=== PATIENT | male | born 1990 | race Caucasian/White ===

== ENCOUNTER 2019-10-02 16:13 | Emergency (ER) | payer OTHER, SELFPAY ==
[2019-10-02 16:16] VITALS: BP 134/97; PULSE 86; RESP 18; TEMP 36.4; O2SAT 97
--- NOTE | 2019-10-02 16:24 | ED.GENADUL_ITS ---
Discharge Plan Disposition Patient Disposition: HOME Condition: Good Discharge Details Chief Complaint: Anxiety Clinical Impression: Anxiety, Panic attack Primary Care Provider: None,None ED Provider: Diana Zhang Home Meds and New Rx's Prescriptions: New lorazepam [Ativan] 0.5 mg tablet 0.5 mg PO TID PRN (Reason: anxiety) Qty: 10 RF: 0 Discharge Instructions Instructions: Lorazepam (By mouth), Anxiety (ED), Panic Attack (ED) Additional Instructions: Please encourage sleep hygiene as discussed. Take Ativan half in hour to 1 hour prior to bed. If you have another panic attack coming on, please take the Ativan as prescribed. Take this only as prescribed. Do not drive will take this medication. Keep this in a safe place. Do not drink alcohol will take this medicine. Mental health will be in touch with you tomorrow for continued discussions about her anxiety. Her home care consultant will also reach out to you to help set up follow-up appointment this week with primary care. Try daily exercise. Do not take on stressful projects at this time. If you develop thoughts of self-harm, suicidal ideations, worsening panic attacks or other new/worsening symptom please seek care urgently once again. Stand Alone Forms: Work Release Discharge Data Discharge Date/Time-TO BE ENTERED AT DEPARTURE: 10/02/19 19:06 Medical Decision Making Patient is a pleasant 29-year-old male presenting to complain of anxiety and panic attacks. His mother for evaluation after she noted him to have increased anxiety. Patient states that the past 2 weeks he has been having panic attacks almost daily during which time he begins quickly, experiences twitching, tingling in his hands and his feet. He denies any history of anxiety but states that over recent months he has had numerous life stressors that have been bringing this out. He reports that his cousin committed suicide a few months ago. COVID-19 has been very stressful on him. Significant other of 6 years broke up with him 2 weeks ago. Says that this is the greatest of all stressors at this time. He reports that secondary to this he is now having to move his he can no longer afford his apartment. He has had a significant change at work which was unwanted and sounds to be secondary to COVID-19. He has to move in the next few weeks because he can no longer afford his apartment without a second income of his significant other. Patient lives in [facility] but is visiting family here. He states that in [place] as well as here he has an excellent support system. Has been able to stay out of his apartment that he had shared with his significant other when he was in [place] as he staying with friends. States that this does help. He denies any thoughts of self-harm. No suicidal ideation. Denies subsequently others. Denies any hallucinations. No alcohol or illicit drug use. Patient is non-smoker. Patient states that he is had very interrupted sleep patterns. States minimal sleep over the last 2 weeks. Reports that when he is at rest his mind becomes very busy and that is when he has most difficulty. He reports that when he is working the symptoms seem to be much improved. He reports going programs at midnight to help with may be more busy. He has not attempted any self-harm historically. Patient does not have a local primary care. On exam, patient is resting comfortably. He appears in no acute distress. He is denying feeling anxious at the moment. Seems to have very good personal insight and is able to identify things that both help and perform his mental state. He is not seem to be a threat to others or himself at this time. However, given the note of anxiety he has been experiencing, I will consult with mental health. I did offer anxiolytic which she has declined at this time as he is feeling well at the moment. Mental health consulted with the patient. She will check in with the patient tomorrow. She will set patient up with local therapist. In the interim she will continue to check daily. PHQ 9 is a 18 but patient answered zero to any thought of self harm or suicidal ideation. Spoke with care management who will ensure the patient has primary care in [place] and follow-up will be arranged for this week. I spoke with the patient as well as his mother regarding treatment options for anxiety. Patient history, I think at the base of skull patient needs to get over immediately is sleep deprivation. His panic attacks are worse at night when trying to go to sleep. I believe the patient is at low risk for abuse of benzodiazepines. I think Ativan prior to bed would allow for sleep. We discusse dthis, encouraged sleep hygeine. He will have close f/u with mental health and PCP. He is able to contract to safety, is not a risk to himself or others at this time. However, I discussed worsening symptoms that should prompt reevaluation. Discussed plan with mother in depth.We discussed anxiety lessening techniques. He has excellent support system. He will not drive while taking ativan. All questions and concerns were addressed, he is in agreement with this plan. HPI General Mode of arrival: ambulatory . Date/Time Provider Initiated Documentation: 10/02/19 16:24 . Limitations to Documentation: no limitations . Information obtained by: patient and RN notes reviewed . HPI Narrative: Patient is a pleasant 29 year old male presenting for evaluation of anxiety and panic attacks. He states that he has not typically been anxious historically but states that he has had a rough year. Reports that his cousin committed suicide a few months ago. COVID has been stressful. His significant other of 6 years broke up with him 2 weeks ago. He has had a significant change in his job. Secondary to his change in financial status with break up, he is no longer able to afford his appointment. States that since his break up, he has had difficulty sleeping. States that he has an excellent support system and has been staying out of his apartment as this makes his anxiety worse. Has stayed with family or friends. Is currently visiting his parents. He lives in [place], [place]. He denies SI, HI, hallucinations. No ETOH or drug use. Related Data Home Medications Medication Instructions Recorded Confirmed lorazepam [Ativan] 0.5 mg PO TID PRN #10 tab 10/02/19 Previous Rx's Medication Instructions Recorded lorazepam [Ativan] 0.5 mg PO TID PRN #10 tab 10/02/19 Allergies Allergy/AdvReac Type Severity Reaction Status Date / Time amoxicillin [From Augmentin] Allergy Unverified 10/02/19 16:30 clavulanic acid Allergy Unverified 10/02/19 16:30 [From Augmentin] erythromycin base Allergy Unverified 10/02/19 16:30 [From Pediazole] hyaluronic acid Allergy Unverified 10/02/19 16:30 [From Supartz] naproxen [From Aleve] Allergy Hives Unverified 10/02/19 16:30 sulfisoxazole Allergy Unverified 10/02/19 16:30 [From Pediazole] General Stated Complaint: Anxiety ALISON: 3 Review of Systems Constitutional Constitutional: Reports as per HPI, Denies chills, Denies fatigue, Denies fever(s), Denies headache(s) and Denies weakness Eyes Eyes: Denies change in vision ENT Ears, Nose, Mouth, and Throat: Denies headache(s) Cardiovascular Cardiovascular: Reports as per HPI, Denies chest pain, Denies lightheadedness, Denies dyspnea and Denies dyspnea on exertion Respiratory Respiratory: Reports as per HPI, Denies cough, Denies dyspnea and Denies dyspnea on exertion Gastrointestinal Gastrointestinal: Reports as per HPI, Denies abdominal pain, Denies change in bowel habits, Denies nausea and Denies vomiting Genitourinary Genitourinary: Denies system reviewed and no additional complaints, except as documented (denies any change in urinary habits) Musculoskeletal Musculoskeletal: Denies abnormal gait Integumentary/Breasts Skin/Breast: Reports as per HPI and Denies rash Neurologic Neurologic: Denies abnormal movements, Denies abnormal speech, Denies abnormal gait, Denies behavioral changes, Denies headache(s), Denies memory loss, Denies paresthesias and Denies weakness Psychiatric Psychiatric: Reports abnormal sleep pattern, Reports anxiety, Denies behavioral changes, Reports change in appetite, Reports depression, Denies auditory hallucinations, Denies hopelessness, Denies anhedonia, Denies memory loss, Denies mood swings, Reports panic attacks, Denies visual hallucinations, Denies hallucinations, Denies homicidal ideation and Denies suicidal ideation Endocrine Endocrine: Denies fatigue PFSH Social History Smoking/Tobacco Use Status: Never Alcohol Intake: current Alcohol Intake frequency: a few times a month Drug use: Never Substance use type: does not use Do you feel safe at home: Yes Do you feel safe in your relationship?: Yes Additional Social history: I have had a rough year he denies feeling suicidal Exam Const General: cooperative, healthy appearing, comfortable, no acute distress, well developed and well groomed Nutritional Appearance: average body habitus and well nourished Orientation: alert and awake Eyes General: appearance normal, both eyes and all related structures Resp Effort & Inspection: normal respiratory effort, able to speak in complete sentences and no respiratory distress Auscultation: clear to auscultation bilaterally, no rales, no rhonchi and no wheezes Cardio Rate: regular rate Rhythm: regular rhythm Heart Sounds: S1 normal and S2 normal Skin General skin exam: no rashes or lesions noted Trauma: no lacerations or abrasions Neuro General: patient alert and patient awake Cognition: normal cognition Speech: speech normal Gait: normal gait Psych Appearance: grossly normal and well kempt Mental Status: mental status grossly normal Speech and Movement: speech and movement normal Mood: congruent mood Affect: normal affect Attitude: cooperative Thought Process: normal Thought Content: normal Insight: insight good Judgment: judgment good Course Vital Signs Vital signs: Vital Signs Temperature 36.4 C L 10/02/19 16:16 Pulse 86 10/02/19 16:16 Respiratory Rate 18 10/02/19 16:16 Blood Pressure 134/97 H 10/02/19 16:16 Pulse Oximetry 97 10/02/19 16:16 Temperature 36.4 C L 10/02/19 16:16 Pulse 86 10/02/19 16:16 Respiratory Rate 18 10/02/19 16:16 Blood Pressure 134/97 H 10/02/19 16:16 Blood Pressure Position Sitting 10/02/19 16:16 Pulse Oximetry 97 10/02/19 16:16 Oxygen Delivery Method Room Air 10/02/19 16:16 Oxygen Flow Rate 0 10/02/19 16:16 Pain Level 0 10/02/19 16:16
--- NOTE | 2019-10-02 18:43 | PDOC.MHCN ---
Date of service: 10/02/19 Time of Service: 18:43 Mental Health Crisis Note Presenting Issue How did you arrive at the ED and why did you come: Client arrived at [facility] ED for anxiety due to major life changes that have happened in his life recently. Precipitating Factors Client denies SI and HI. Disposition BEHAVIOR: When mental health clinician entered room via zoom client was talkative with mental health clinician. Client answered all of the questions that mental health clinician asked. Client stated that he did not want to harm himself or others, just that he was struggling with anxiety from recent life changes. Client scored a 19 on the PhQ-9 rating scale. EYE CONTACT: Client made good eye contact with mental health clinician over zoom. MOOD: Client appeared to be depressed, although he was able to show engaging communication with mental health clinician. AFFECT: flat affect, showing no affective expression with mental health clinician. APPETITE: Client stated that he has not been eating well at all. Client stated that about 2 weeks ago when his anxiety really started he would not eat at all, but now he is forcing himself to eat at least one meal a day and he states that it goes right through him. SLEEP(trouble falling/staying asleep: Client stated that he has not been sleeping at all. Client states that he has not slept in about 2 weeks. Plan Safety plan in place. [facility] mental health clinician will call client tomorrow night around 7:00 p.m. for a check-in phone call. [facility] will provide list of counselors in [facility] for client. Signature Clinician's Name/Title: Lilibeth Wakefield, [facility] mental health clinician.
[2019-10-02 19:06] VITALS: BP 143/88; PULSE 53; RESP 12; TEMP 36.7; O2SAT 99
--- NOTE | 2019-10-03 15:35 | PDOC.ERCMPRO ---
- If Service Date Differs Date of service: 10/03/19 Time of Service: 15:35 Care Management Progress Note 10/03/2019 - At the request of ED provider, KAITLIN telephones patient to discuss his plans for returning to the [place], [place] area where he resides. Germán needs to establish care with a PCP and with a therapist. Germán advises he is returning home tomorrow but will be coming back to [place], [place] to visit his parents for the weekend. KAITLIN inquires as to his preference for providers in [place] and Germán reports he already has an appointment scheduled with a provider on October 27, 2019, but is unsure if the provider is at the [facility] or [facility]. 10/06/2019 - KAITLIN follows up with Germán by telephone. He advises he is doing well and figured out his appointment is with [facility] at the end of September. He has already called them and has requested to be placed on a cancellation list for a sooner appointment. Germán is advised to call me if I can be of further assistance.
== END 2019-10-02 19:06 | disposition home or self-care (01) ==
PROVIDERS: Emergency Provider Physician Assistant
DX: F41.0 Panic disorder [episodic paroxysmal anxiety] (principal); R20.2 Paresthesia of skin; Z72.820 Sleep deprivation
CPT/HCPCS: 99283